=== PATIENT | female | born 1960 | race Caucasian/White ===

== ENCOUNTER 2019-01-13 05:59 | Day surgery (SDC) | payer OTHER ==
[2019-01-13] MEDS ORDERED: LIDOCAINE 2% (SDV) 5 ML INJ (07:00)
[2019-01-13] MEDS ORDERED: FENTAnyl 50 MCG/ML VIAL IV ×2 (07:30)
[2019-01-13] MEDS ORDERED: OXYCODONE/ACETAMINOPHEN (5/325) TAB PO (07:30)
[2019-01-13] MEDS ORDERED: LABETALOL HCL 20MG INJ IV (07:30)
[2019-01-13] MEDS ORDERED: ALBUTEROL 0.083% (NEB) 2.5 MG/3 ML AMP HHN (07:30)
[2019-01-13] MEDS ORDERED: hydrALAzine 20 MG INJ IV (07:30)
[2019-01-13] MEDS ORDERED: MEPERIDINE 25 MG INJ IV (07:30)
[2019-01-13] MEDS ORDERED: ONDANSETRON 4 MG INJ IV (07:30)
[2019-01-13] MEDS ORDERED: PROPOFOL 40 ML (08:16)
== END 2019-01-13 13:32 | disposition home or self-care (01) ==
LOC: GIL 05:59
DX: Z12.11 Encounter for screening for malignant neoplasm of colon (principal); K57.30 Diverticulosis of large intestine without perforation or abscess without bleeding; K64.8 Other hemorrhoids; K29.30 Chronic superficial gastritis without bleeding
CPT/HCPCS: 43239; 88305

== ENCOUNTER 2019-03-12 05:42 | Day surgery (SDC) | payer OTHER ==
[2019-03-12] MEDS ORDERED: PHENYLephrine (100 MCG/ML) 10ML SYG IV (05:43)
[2019-03-12] MEDS ORDERED: EPHEDrine 25 MG/5 ML SYG IV ×2 (05:43→09:30)
[2019-03-12] MEDS: SOD CHLORIDE 0.9% 1,000 ML IV (06:46)
[2019-03-12] MEDS ORDERED: PROPOFOL 20 ML (07:28)
[2019-03-12] MEDS ORDERED: CEFAZOLIN 1 GM INJ (07:28)
[2019-03-12] MEDS ORDERED: ROCURONIUM 50 MG INJ (07:28)
[2019-03-12] MEDS ORDERED: MIDAZOLAM 1 MG/ML 2 ML INJ (07:28)
[2019-03-12] MEDS ORDERED: FENTAnyl 50 MCG/ML VIAL (07:28)
[2019-03-12] MEDS ORDERED: BACITRACIN/POLYMYXIN 28.35 GM OINT TOP (07:47)
[2019-03-12] MEDS: BUPIVACAINE 0.25%/EPI (SDV) 30 ML INJ (08:22)
[2019-03-12] MEDS: POLYMYXIN/BACITRACIN 1L IRRIG (08:22)
[2019-03-12] MEDS: GENTAMICIN 80 MG INJ (08:23)
[2019-03-12] MEDS ORDERED: ONDANSETRON 4 MG INJ (08:35)
[2019-03-12] MEDS ORDERED: DEXAMETHASONE 4 MG/ML 5 ML INJ (08:35)
[2019-03-12] MEDS ORDERED: METOCLOPRAMIDE 10 MG INJ (08:35)
[2019-03-12] MEDS: BUPIVACAINE LIPOSOME/PF 266 MG/20 ML VIAL INFIL (08:50)
[2019-03-12] MEDS ORDERED: FENTAnyl 50 MCG/ML VIAL IV ×2 (09:30)
[2019-03-12] MEDS ORDERED: MEPERIDINE 25 MG INJ IV (09:30)
[2019-03-12] MEDS ORDERED: SUGAMMADEX SODIUM 200 MG/2 ML VIAL IV (09:30)
[2019-03-12] MEDS ORDERED: OXYCODONE/ACETAMINOPHEN (5/325) TAB PO (09:30)
[2019-03-12] MEDS ORDERED: LABETALOL HCL 20MG INJ IV (09:30)
[2019-03-12] MEDS ORDERED: METOCLOPRAMIDE 10 MG INJ IV (09:30)
[2019-03-12] MEDS ORDERED: HYDROmorphONE 1 MG/5 ML IV SYRINGE IV ×2 (09:30)
[2019-03-12] MEDS ORDERED: DIPHENHYDRAMINE 50 MG INJ IV (09:30)
[2019-03-12] MEDS ORDERED: morphine 2 MG INJ IV (10:00)
[2019-03-12] MEDS ORDERED: ONDANSETRON 4 MG INJ IV (10:00)
[2019-03-12] MEDS ORDERED: HYDROCODONE/APAP (5/325) TAB PO (10:00)
[2019-03-12] MEDS: HYDROmorphONE 1 MG/5 ML IV SYRINGE IV ×2 (10:10→10:22)
[2019-03-12] MEDS: FENTAnyl 50 MCG/ML VIAL IV ×2 (10:10→10:21)
[2019-03-12] MEDS: ONDANSETRON 4 MG INJ IV (10:10)
== END 2019-03-12 11:25 | disposition home or self-care (01) ==
LOC: SDS 05:42
DX: T85.43XA Leakage of breast prosthesis and implant, initial encounter (principal); Y83.8 Other surgical procedures as the cause of abnormal reaction of the patient, or of later complication, without mention of misadventure at the time of the procedure; M81.0 Age-related osteoporosis without current pathological fracture; M26.609 Unspecified temporomandibular joint disorder, unspecified side; Z90.710 Acquired absence of both cervix and uterus; K21.9 Gastro-esophageal reflux disease without esophagitis; T85.43XD Leakage of breast prosthesis and implant, subsequent encounter
CPT/HCPCS: 19371